=== PATIENT | female | born 1960 | race Caucasian/White ===

== ENCOUNTER 2016-06-24 13:24 | Emergency (ER) | payer OTHER ==
[~2016-06-24 13:24] MED LIST: ALBUTEROL17 GM INH; ALLERGY25 MG PO; AMOXICILLIN PO; ATARAX PO; CIPRO PO; DARVOCET-N 1001 TAB PO; EC-NAPROSYN500 MG PO; FLAGYL PO; FLEXERIL PO; HYDROCODONE-APA1 T42 PO; IBUPROFEN PO; KEFLEX500 M1 PO; KETOPROFEN PO; LORTAB 10-5001 EACH; MEDROL PO; NO MEDICATIONS; ORUDIS75 M1 DOB; ORUDIS75 M1 PO; PREDNISONE PO; RONDEC-DM ORAL30 ML PO; TRIAMCINOLONE A15 G6 TD; ULTRAM PO; VIBRAMYCIN100 M1 PO; VICODIN 5/500 T1 TAB PO; ZANAFLEX4 M1 PO; ZITHROMAX PO; ZOFRANODT SL
[2016-06-24 13:40] LABS: URINE SOURCE CLEAN CATCH
[2016-06-24 13:42] LABS: URINE APPEARANCE SL CLOUDY; URINE BILIRUBIN NEG (NEG); URINE BLOOD 2+ (NEG); URINE COLOR YELLOW; URINE GLUCOSE NEG (NORM); URINE KETONE NEG (NEG); URINE LEUKOCYTE ESTERASE 3+ (NEG); URINE NITRATE NEG (NEG); URINE PROTEIN NEG (NEG); URINE SPECIFIC GRAVITY 1.025 (1.003-1.035); URINE UROBILINOGEN 0.2 MG/DL (NORM)
[2016-06-24 13:52] LABS: MICRO INDICATED? YES
[2016-06-24 14:03] LABS: CULTURE INDICATED? YES; URINE BACTERIA 1+ (NEG); URINE WBC 100-200 /[HPF] (0-5)
[2016-06-27 08:30] LABS: CHLAMYDIA TRACH Not Detected (Not Detected); N GONOR Not Detected (Not Detected)
== END 2016-06-24 14:28 | disposition home or self-care (01) ==
LOC: SED 13:24
PROVIDERS: Nurse Practitioner
DX: A59.01 Trichomonal vulvovaginitis (principal); N30.90 Cystitis, unspecified without hematuria; F17.210 Nicotine dependence, cigarettes, uncomplicated; Z88.2 Allergy status to sulfonamides
CPT/HCPCS: 81003; 87086; 87491; 87591; 87808; 87905; 99284

== ENCOUNTER 2016-11-07 20:22 | Emergency (ER) | payer OTHER ==
[2016-11-08] MEDS ORDERED: NO MEDICATIONS (18:22)
== END 2016-11-09 14:10 | disposition left against medical advice (07) ==
LOC: CED 20:22
DX: Z53.21 Procedure and treatment not carried out due to patient leaving prior to being seen by health care provider (principal)

== ENCOUNTER 2016-11-08 18:11 | Emergency (ER) | payer OTHER ==
[2016-11-08] MEDS ORDERED: NO MEDICATIONS (18:22)
== END 2016-11-08 19:00 | disposition home or self-care (01) ==
LOC: SED 18:11
DX: L03.211 Cellulitis of face (principal); F17.210 Nicotine dependence, cigarettes, uncomplicated; Z88.1 Allergy status to other antibiotic agents
CPT/HCPCS: 99282